=== PATIENT | male | born 1945 | race Caucasian/White ===

== ENCOUNTER → 2017-04-15 | Outpatient (CLI) | payer MEDICARE, OTHER ==
--- NOTE | 2017-04-16 16:20 | P.ARTDOP ---
Arterial Doppler LOWER EXTREMITY ARTERIAL DOPPLER: DATE OF SERVICE: 04/15/2017 Reason for study: Status post revascularization procedures. Doppler waveforms: Multiphasic bilaterally throughout. Pulse volume recording: Normal configuration. Pressure gradients: Mild gradient above the knee on the right. Moderate gradient above the knee on the left.. Ankle-brachial indices: 0.88 on the right and 0.65 on the left Toe pressures: [] on the right, [] on the left Impression: Mild right SFA disease. Moderate left fem-pop disease..
== END | disposition home or self-care (01) ==
LOC: RADUSWWP 08:37
PROVIDERS: ATTEND Internal Medicine
DX: I73.9 Peripheral vascular disease, unspecified (principal)
CPT/HCPCS: 93923

== ENCOUNTER 2018-06-10 09:25 | Day surgery (SDC) | payer MEDICARE, OTHER ==
[2018-06-08 16:01] VITALS: BMI 27.8
[~2018-06-10 09:25] MED LIST: LACTATED RINGERS 1,000 ML IV SCH; LIDOCAINE 1% 20 ML VIAL (10MG/ML) FOR IV START INTRADERMA PRN
[2018-06-10 10:23] VITALS: RESP 16; TEMP 97.6
[2018-06-10] MEDS ORDERED: LIDOCAINE 1% INJ 10MG/ML (20 ML MDV) ONE (11:25)
[2018-06-10] MEDS ORDERED: PROPOFOL 10 MG/ML 20 ML VIAL IV ONE (11:25)
[2018-06-10] MEDS ORDERED: GLYCOPYRROLATE 0.2 MG/ML 2 ML VIAL ONE (11:25)
--- NOTE | 2018-06-10 11:48 | P.PCN ---
Date of Procedure: 06/10/18 Procedure(s) Performed: Brief history: Patient is a pleasant 73-year-old white male, scheduled for an elective upper endoscopy as well as colonoscopy as a part of evaluation of GERD/Macedo's esophagus and screening for colorectal neoplasia Procedure performed: Esophagogastroduodenoscopy with biopsy Colonoscopy with snare polypectomy Preoperative diagnosis: Macedo's esophagus Screening for colon cancer Anesthesia: MAC Procedure: After informed consent was obtained from the patient was brought into the endoscopy unit and IV sedation was administered by anesthesia under continuous monitoring. Initially upper endoscopy was done. The Olympus GF 160 video endoscope was inserted inserted into the mouth and esophagus intubated without any difficulty and was gradually advanced into the stomach and duodenum and carefully examined. The bulb and second part of the duodenum appeared normal. The scope was then withdrawn into the stomach adequately insufflated with air and upon careful examination the antrum had a few patchy areas of erythema in the prepyloric area and biopsies from this area. The body, cardia and fundus appeared normal. The scope was then withdrawn into the esophagus. The GE junction was located at 39 cm to the incisors. It appeared regular with no erythema erosions or ulcthere was a short segment of Macedo's esophagus extending 2 mm proximal to the GE junction and this was biopsied.Rest of the esophagus appeared normal. Patient tolerated the procedure well. At this time the patient continued to remain sedation. Initial digital rectal examination was normal. Olympus CF 160 video colonoscope was then inserted into the rectum and gradually advanced to the cecum without any difficulty. Careful examination was performed as the scope was gradually being withdrawn. The prep was fair. The cecum, ascending colon, appeared normal. In the hepatic flexure there was a 1 cm sessile polyp removed by snare polypectomy. Rest of the transverse colon, descending colon, sigmoid colon and rectum appeared normal. Retroflexion was performed in the rectum and small internal hemorrhoids were noted. Patient tolerated the procedure well. Impression: 1. Upper endoscopy revealed short segment Macedo's esophagus and mild antral gastritis 2. Colonoscopy revealed 1 cm sessile hepatic flexure polyp status post polypectomy and small internal hemorrhoids. Rolo colonoscopy revealed mmendations: Findings of this examination were discussed with the patient as well as his family. He was advised to follow with the biopsy results. Based the biopsy results he can have a repeat upper endoscopy in 2-3 years from now colonoscopy in 3-5 years.
[2018-06-10 12:20] VITALS: BP 182/69; PULSE 63
== END 2018-06-10 12:46 | disposition home or self-care (01) ==
LOC: ORWHC2ENDO 09:25
PROVIDERS: ATTEND Internal Medicine Gastroenterology
DX: Z12.11 Encounter for screening for malignant neoplasm of colon (principal); K29.50 Unspecified chronic gastritis without bleeding; K22.70 Barrett's esophagus without dysplasia; K21.9 Gastro-esophageal reflux disease without esophagitis; D12.3 Benign neoplasm of transverse colon; K64.8 Other hemorrhoids; J44.9 Chronic obstructive pulmonary disease, unspecified; Z86.711 Personal history of pulmonary embolism; I25.10 Atherosclerotic heart disease of native coronary artery without angina pectoris; M19.90 Unspecified osteoarthritis, unspecified site; Z79.02 Long term (current) use of antithrombotics/antiplatelets; Z79.82 Long term (current) use of aspirin; Z79.899 Other long term (current) drug therapy; Z88.6 Allergy status to analgesic agent; Z88.8 Allergy status to other drugs, medicaments and biological substances
CPT/HCPCS: 88305; 45385; 43239; J2001; J2704

== ENCOUNTER → 2020-07-24 | Outpatient (CLI) | payer MEDICARE, OTHER ==
--- NOTE | 2020-07-24 08:06 | CT ---
EXAMINATION TYPE: CT iac wo con DATE OF EXAM: 07/24/2020 COMPARISON: none HISTORY: vertigo CT DLP: 300mGycm Automated exposure control for dose reduction was used. FINDINGS: The external auditory canals are patent bilaterally. Mastoid air cells show no evidence of abnormal opacification bilaterally. The middle ear ossicles are symmetric and unremarkable. There is no evidence of suspicious surrounding soft tissue density to suggest cholesteatoma. The scutum is preserved bilaterally. The cochlea and the semicircular canals are symmetric and unremarkable. Ves tibular aqueduct and internal carotid canal appear unremarkable. Temporomandibular joints are mainta ined bilaterally. There is mild mucosal thickening of the maxillary sinuses right greater than left. IMPRESSION: No significant abnormality seen to account for patient's symptoms.
== END | disposition home or self-care (01) ==
LOC: RADCTMAIN 07:09
PROVIDERS: ATTEND Otolaryngology
DX: H93.3X9 Disorders of unspecified acoustic nerve (principal); R42 Dizziness and giddiness
CPT/HCPCS: 70480

== ENCOUNTER 2021-06-13 08:57 | Day surgery (SDC) | payer MEDICARE, OTHER ==
[2021-06-08 09:25] VITALS: BMI 25.3
[2021-06-13] MEDS: LACTATED RINGERS 1,000 ML IV SCH ×2 (09:44→10:17)
[2021-06-13 09:47] VITALS: TEMP 98.3
[2021-06-13] MEDS ORDERED: LIDOCAINE 1% INJ 10MG/ML (20 ML MDV) ONE (10:18)
[2021-06-13] MEDS ORDERED: PROPOFOL 10 MG/ML 20 ML VIAL IV ONE (10:18)
--- NOTE | 2021-06-13 10:40 | P.PCN ---
Date of Procedure: 06/13/21 Procedure(s) Performed: Brief history: Patient is a pleasant 76-year-old white male scheduled for an elective upper endoscopy as well as colonoscopy as a part of evaluation of GERD/Macedo's esophagus and prior history of colon polyps Procedure performed: Esophagogastroduodenoscopy with biopsy Colonoscopy with biopsy Preoperative diagnosis: GERD/Macedo's esophagus History of colon polyps Anesthesia: MAC Procedure: After informed consent was obtained from the patient was brought into the endo scopy unit and IV sedation was administered by anesthesia under continuous monitoring. Initially upper endoscopy was done. The Olympus GF 160 video endoscope was inserted inserted into the mouth and esophagus intubated without any difficulty and was gradually advanced into the stomach and duodenum and carefully examined. The bulb and second part of the duodenum appeared normal. The scope was then withdrawn into the stomach adequately insufflated with air and upon careful examination the antrum and body, cardia and fundus appeared normal. The scope was then withdrawn into the esophagus. The GE junction was located at 40 cm to the incisors. It appeared irregular with short island of Macedo's-appearing mucosa which was biopsied. There were no erythema erosions or ulcerations. Rest of the esophagus appeared normal. Patient tolerated the procedure well. At this time the patient continued to remain sedation. Initial digital rectal examination was normal. Olympus CF 160 video colonoscope was then inserted into the rectum and gradually advanced to the cecum without any difficulty. Careful examination was performed as the scope was gradually being withdrawn. The prep was excellent. The cecum, ascending colon, transverse colon, descending colon, normal. There were 3 mm polyp in the sigmoid colon with cold biopsy. sigmoid colon and rectum appeared normal. Retroflexion was performed in the rectum and grade 2 internal hemorrhoids were noted. Patient tolerated the procedure well. Impression: 1. Upper endoscopy revealed a 2 mm island of Macedo's appearing mucosa just proximal to the GE junction status post biopsy 2. Colonoscopy revealed 3 mm; polyp, scattered sigmoid diverticulosis and grade 2 internal hemorrhoids Recommendations: Findings of this examination were discussed with the patient as well as his family. He was advised to follow with the biopsy results. If the biopsy confirms the presence of Macedo's esophagus he can have a repeat upper end oscopy in 3 years and or colonoscopy in 5 years.
[2021-06-13 10:46] VITALS: RESP 16
[2021-06-13 11:31] VITALS: BP 144/68; PULSE 54
== END 2021-06-13 11:59 | disposition home or self-care (01) ==
LOC: ORWHC2ENDO 08:57
PROVIDERS: ATTEND Internal Medicine Gastroenterology
DX: Z12.11 Encounter for screening for malignant neoplasm of colon (principal); K21.9 Gastro-esophageal reflux disease without esophagitis; K22.70 Barrett's esophagus without dysplasia; K64.8 Other hemorrhoids; K57.90 Diverticulosis of intestine, part unspecified, without perforation or abscess without bleeding; I10 Essential (primary) hypertension; E78.5 Hyperlipidemia, unspecified; I25.10 Atherosclerotic heart disease of native coronary artery without angina pectoris; Z95.1 Presence of aortocoronary bypass graft; Z95.5 Presence of coronary angioplasty implant and graft; Z86.711 Personal history of pulmonary embolism; Z86.718 Personal history of other venous thrombosis and embolism; Z79.899 Other long term (current) drug therapy; Z79.82 Long term (current) use of aspirin; E07.9 Disorder of thyroid, unspecified; Z79.02 Long term (current) use of antithrombotics/antiplatelets; K63.5 Polyp of colon
CPT/HCPCS: 88305; 45380; 43239; J2001; J2704

== ENCOUNTER → 2021-11-01 | Outpatient (CLI) | payer MEDICARE, OTHER ==
--- NOTE | 2021-11-01 17:01 | CONS ---
CONSULTATION DATE OF SERVICE: 11/01/2021 This 76-year-old gentleman has been evaluated in [facility] for episodes of multiple awakenings from sleep and sometimes tiredness and sleepiness during the day. HISTORY OF PRESENT ILLNESS SLEEP-WAKE EVALUATION: SLEEP SCHEDULE: Patient's usual sleep schedule from 11 p.m. to 6 or 7 a.m. FALLING ASLEEP: Usually no problems with falling asleep. No TV in bedroom. DURING SLEEP: He usually sleeps on the side position. Previously, he snores. He wakes up from sleep up to 3 times with nocturia. DURING THE DAY/SLEEP WAKE EVALUATION: During the day, he may have feeling fatigue and sleepiness. [place] Sleepiness Scale he is 4. Usually he may take one nap at afternoon time. He drinks up to 7 glasses of caffeinated beverages during the day. No history of hypnagogic hallucinations, sleep paralysis or cataplexy. PAST MEDICAL HISTORY: Positive for coronary artery disease, hyperlipidemia, acid reflux, hypothyroidism. Gout, lung problems, including emphysema, tuberculosis. MEDICATIONS: Synthroid 50 mcg once a day, hydralazine 25 mg twice a day, Coreg 3.125 mg twice a day. Nexium 40 mg once a day. Trental 400 mg twice a day. Plavix 75 mg once a day. Norvasc 10 mg once a day. Cardura 8 mg once a day. Crestor 20 mg once a day. Uloric 40 mg once a day. Meclizine 12.5 mg as needed. Aspirin 81 mg once a day. Melyssa 180 mg once a day. Vitamin supplements. SOCIAL HISTORY: Positive for smoking for 36 years, 1-1/2 pack a day, quit in 1993. Alcohol consumption occasional. FAMILY HISTORY: Positive for heart problems, lung problems. REVIEW OF SYSTEMS: Multiple awakenings from sleep with nocturia. PHYSICAL EXAMINATION: GENERAL: gentleman without distress. BP 188/77, HR 60, RR 14, height 5 feet 8 inches, weight 163.0, body mass index 24.7, temperature 96.8, oxygen saturation at room air 97%. OROPHARYNX: Low position of soft palate, Mallampati 3, wide pillars. Neck is wide 17- 1/2 inches in circumference. Neck: Supple, no JVD. Thyroid is not palpable. LUNGS: Clear to percussion and to auscultation. Good air exchange. No wheezing or rhonchi. HEART: S1, S2 regular. No murmurs, gallops, or rubs. ABDOMEN: Soft and nontender. Bowel sounds are present. No organomegaly appreciated. EXTREMITIES: No clubbing or cyanosis. ACOUSTICAL CARPENTER: Awake, alert, and oriented X3. Cranial nerves 2 to 7 intact. There is no fasciculation or atrophy. noted. No focal deficits observed. IMPRESSION: 1. Multiple awakenings from sleep with nocturia, low position of soft palate, Mallampati 3, wide neck, 17-1/2 inches in circumference, possible obstructive sleep apnea-hypopnea syndrome. 2. Hypertension. 3. History of coronary artery disease, status post coronary artery bypass grafting and multiple stent insertions. 4. Hyperlipidemia. 5. Arthritis. 6. History of gout. 7. History of smoking for more than 50 pack years. 8. History of emphysema. 9. Acid reflux. 10.Hypothyroidism. 11.Status post hernia repair. 12.Status post surgery for carpal tunnel syndrome. 13.Status post tonsillectomy. PLAN: 1. Polysomnography for evaluation of patient's breathing during sleep. 2. CPAP/BiPAP titration if sleep study confirms obstructive sleep apnea-hypopnea syndrome. 3. Preferable position during sleep on the side. 4. No driving if patient feels any sleepiness. 5. I will see patient for follow up visit to explain results of testing and following plan. Thank you very much for referring this patient for consultation. Sincerely, Kash Nicole MD, PhD, FAASM Diplomat of [place] [employer] Sleep Medicine [employer] of [place] [employer] Slip Cover Estimator of [facility] [place] MMODL / IJN: [id number] /
== END ==
LOC: SLEEP 14:41
PROVIDERS: ATTEND Internal Medicine
DX: G47.8 Other sleep disorders (principal); R35.1 Nocturia; I10 Essential (primary) hypertension; I25.10 Atherosclerotic heart disease of native coronary artery without angina pectoris; E78.5 Hyperlipidemia, unspecified; M19.90 Unspecified osteoarthritis, unspecified site; K21.9 Gastro-esophageal reflux disease without esophagitis; E03.9 Hypothyroidism, unspecified; Z87.891 Personal history of nicotine dependence; Z90.49 Acquired absence of other specified parts of digestive tract; Z98.890 Other specified postprocedural states; Z87.39 Personal history of other diseases of the musculoskeletal system and connective tissue; Z95.1 Presence of aortocoronary bypass graft; Z87.09 Personal history of other diseases of the respiratory system; Z79.890 Hormone replacement therapy; Z79.02 Long term (current) use of antithrombotics/antiplatelets; Z79.82 Long term (current) use of aspirin
CPT/HCPCS: 99211

== ENCOUNTER → 2022-05-01 | Outpatient (CLI) | payer MEDICARE, OTHER ==
--- NOTE | 2022-05-01 11:05 | CT ---
EXAMINATION TYPE: CT ChestAbdPelvis w con DATE OF EXAM: 05/01/2022 COMPARISON: None HISTORY: Unexplained weight loss CT DLP: 587.3 mGycm CONTRAST: CT scan of the chest, abdomen and pelvis is performed with Oral Contrast and with IV Contrast, patien t injected with 70 ML mL of Isovue 300. CT Chest: LUNGS: The lungs are clear and free of infiltrate or atelectasis. No pulmonary nodule or mass is det ected. No pleural effusion or CT evidence of interstitial lung disease. MEDIASTINUM: Thoracic aorta is of normal caliber. The heart is not enlarged. No evidence for media stinal mass or adenopathy. HILAR STRUCTURES: No evidence for mass. No hilar adenopathy is appreciated. OTHER: No significant abnormality. CONTRAST CT ABDOMEN AND PELVIS FINDINGS: LIVER/GB: Small calcified gallstones noted. No space occupying hepatic lesion. Biliary tree is of nor mal caliber. PANCREAS: No inflammation. No distinct mass. SPLEEN: No splenic enlargement. No lesion seen. ADRENALS: No nodule. No thickening. KIDNEYS/BLADDER: No hydronephrosis. No nephrolithiasis. Renal cystic changes noted bilaterally. No solid lesions evident. BOWEL: Normal appendix. Normal bowel caliber. No inflammation. Wall thickening the distal stomach/d uodenum. Could reflect inflammatory process such as a gastritis/duodenitis however underlying mass is not excluded. Consider direct visualization. GENITAL ORGANS: No gross abnormality. LYMPH NODES: No greater than 1cm abdominal or pelvic lymph nodes are appreciated. AORTA: Extensive atheromatous change of the abdominal aorta stenosis estimated at greater than 70%. T he renal artery stents in place. The kidneys appear to perfuse symmetrically. There is some moderate calcified and soft plaque at the origin of the SMA as well as calcified plaque distally. OSSEOUS STRUCTURES: No significant abnormality is seen. OTHER: No significant additional abnormality is seen. IMPRESSION: 1. Wall thickening the distal stomach/duodenum. Could reflect inflammatory process such as a gastriti s/duodenitis however underlying mass is not excluded. Consider direct visualization. 2. Extensive atheromatous change of the abdominal aorta with the greater than 70% stenosis suggested. In addition there is a moderate calcified and soft plaque at the origin of the SMA as well as distal branch. Intermittent ischemia not excluded.
== END | disposition home or self-care (01) ==
LOC: RADCTMAIN 08:39
PROVIDERS: ATTEND Internal Medicine
DX: K63.89 Other specified diseases of intestine (principal); I70.0 Atherosclerosis of aorta
CPT/HCPCS: 82565; 84520; 71260; 74177; 36415; Q9967

== ENCOUNTER → 2022-07-09 | Outpatient (CLI) | payer MEDICARE, OTHER ==
[2022-07-09 18:36] LABS: Basophils # (A) 0.11 X 10*3/uL (0.00-0.10); Basophils % (A) 1.7 %; Eosinophils # (A) 0.26 X 10*3/uL (0.04-0.35); HCT 44.4 % (39.6-50.0); HGB 14.9 g/dL (13.0-17.0); Immature Grans, Automated 0.2 %; Lymphocytes % (A) 24.5 %; MCHC 33.6 g/dL (32.0-37.0); MCV 95.5 fL (80.0-97.0); Mean Platelet Volume 9.9 fL (9.5-12.2); Monocytes # (A) 0.59 X 10*3/uL (0.20-1.00); NRBC Per 100 WBC 0 /100 WBCS (0.0-0.0); Neutrophils # (A) 3.97 X 10*3/uL (1.80-7.70); Neutrophils % (A) 60.6 %; Platelet Count 189 X 10*3/uL (140-440); RBC 4.65 X 10*6/uL (4.40-5.60); RDW 12.9 % (11.5-14.5); WBC 6.54 X 10*3/uL (4.50-10.00)
[2022-07-09 18:49] LABS: Anion Gap 10.3 mmol/L (10.00-18.00); Carbon Dioxide 26.7 mmol/L (20.0-27.5); Potassium 4.1 mmol/L (3.5-5.5)
== END | disposition home or self-care (01) ==
LOC: LABPAT 12:41
PROVIDERS: ATTEND Orthopaedic Surgery Hand Surgery
DX: Z01.818 Encounter for other preprocedural examination (principal); R00.1 Bradycardia, unspecified
CPT/HCPCS: 80051; 85025; 93005

== ENCOUNTER 2022-07-24 10:46 | Day surgery (SDC) | payer MEDICARE, OTHER ==
--- NOTE | 2022-07-23 10:57 | P.HPOR ---
History of Present Illness H&P Date: 07/23/22 Chief Complaint: Left index finger trigger finger, right middle finger trigger finger Subjective: This is a 77 year old male that presents today for initial evaluation regarding a several month history of worsening left index finger pain, locking, and l imited ROM. He also has similar early symptoms of his right middle finger but they are not as severe. He has a history of prior trigger fingers in other digits that were initially treated with injections but ultimately hand trigger finger release on them, he has not had surgery on the left index or right middle finger. He has tried tylenol and aspirin for his symptoms. He's noticed daily locking and pain of the left side, denies any injury. Physical Examination: LUE: AIN/PIN/Radial/Ulnar/Median motor intact. Radial/Ulnar/Median SILT. 2+/4 Radial/Ulnar pulses palpated. 5/5 APB, 5/5 FDI. Negative Finkelsteins, negative CMC grind, negative Durkan's compression. TTP at LIF A1 brigid with locking and catching. RUE: AIN/PIN/Radial/Ulnar/Median motor intact. Radial/Ulnar/Median SILT. 2+/4 Radial/Ulnar pulses palpated. 5/5 APB, 5/5 FDI. Negative Finkelsteins, negative CMC grind, negative Durkan's compression. TTP at RMF A1 brigid with minimal locking and catching. Imaging: X-Rays of the b/l hands demonstrate no fracture/dislocation Impression: 1.) Left index finger trigger finger 2.) Right middle finger trigger finger Plan: Diagnosis and treatment options were discussed with the patient. He would like to proceed with left index finger A1 brigid release and right middle finger trigger finger steroid injection. Risks and benefits of surgery including bleeding, infection, damage to surrounding tissue, need for further surgery, residual numbness were discussed and the patient wished to go forward with surgery. -Sami Lemos DO Orthopedic Hand/Upper Extremity Surgeon Past Medical History Past Medical History: Coronary Artery Disease (CAD), Chest Pain / Angina, COPD, GERD/Reflux, Hyperlipidemia, Hypertension, Osteoarthritis (OA), Pulmonary Embolus (PE), Skin Disorder Additional Past Medical History / Comment(s): heart murmer, gout,,HEART BLOCK ( pt doesn't know type) in past, EMPHYSEMA, BARRETTS ESOPHAGUS History of Any Multi-Drug Resistant Organisms: None Reported Past Surgical History: Coronary Bypass/CABG, Heart Catheterization With Stent, Hernia Repair, Orthopedic Surgery, Tonsillectomy Additional Past Surgical History / Comment(s): 2 stents to lt iliac,1 stent to rt iliac, rt inguinal hernia repair, egd, triple vessel cabg; stent left renal artery, left shoulder surgery,shikha wrist surgery, cataracts Past Anesthesia/Blood Transfusion Reactions: No Reported Reaction Date of Last Stent Placement:: 2003 Smoking Status: Former smoker - Past Family History Mother Family Medical History: Congestive Heart Failure (CHF) Father Family Medical History: Myocardial Infarction (OR) Additional Family Medical History / Comment(s): cabg, at age 67 Medications and Allergies Home Medications Medication Instructions Recorded Confirmed Type Pentoxifylline [TRENtal] 400 mg PO BID 08/08/15 07/19/22 History Rosuvastatin Calcium [Crestor] 20 mg PO HS 08/08/15 07/19/22 History Febuxostat [Uloric] 40 mg PO HS 06/08/18 07/19/22 History Acetaminophen [Tylenol Arthritis] 1,300 mg PO BID 06/08/21 07/19/22 History Aspirin [Adult Low Dose Aspirin EC] 81 mg PO HS 06/08/21 07/19/22 History Cholecalciferol [Vitamin D3 (25 50 mcg PO DAILY 06/08/21 07/19/22 History Mcg = 1000 Iu)] Clindamycin Phosphate [Clindagel 1 applic TOPICAL DIRECTED 06/08/21 07/19/22 History 1%] Clopidogrel [Plavix] 75 mg PO HS 06/08/21 07/19/22 History Doxazosin Mesylate [Cardura] 8 mg PO HS 06/08/21 07/19/22 History Esomeprazole Magnesium [NexIUM] 40 mg PO DAILY 06/08/21 07/19/22 History Fexofenadine HCl [Melyssa Allergy] 180 mg PO DAILY 06/08/21 07/19/22 History Levothyroxine Sodium [Synthroid] 50 mcg PO DAILY 06/08/21 07/19/22 History Meclizine [Antivert] 12.5 mg PO DIRECTED PRN 06/08/21 07/19/22 History [place]-3 Fatty Acids/Fish Oil [Fish 1,300 mg PO DAILY 06/08/21 07/19/22 History Oil 1,000 mg Softgel] Ubidecarenone [Co Q-10] 200 mg PO DAILY 06/08/21 07/19/22 History amLODIPine [Norvasc] 10 mg PO HS 06/08/21 07/19/22 History carvediloL [Coreg] 3.125 mg PO BID 06/08/21 07/19/22 History hydrALAZINE HCL [Apresoline] 25 mg PO BID 06/08/21 07/19/22 History cycloSPORINE 0.05% OPHTH SOLN 1 drop BID 07/19/22 07/19/22 History [Restasis] Allergies Allergy/AdvReac Type Severity Reaction Status Date / Time ibuprofen [From Nuprin] Allergy throat Verified 07/19/22 10:56 swelling simvastatin [From Zocor] Allergy muscle pain Verified 07/19/22 10:56 allopurinol AdvReac Rash/Hives Verified 07/19/22 10:56 Physical Examination Osteopathic Statement: *. No significant issues noted on an osteopathic structural exam other than those noted in the History and Physical/Consult.
[~2022-07-24 10:46] MED LIST changes: +DEXAMETHASONE SOD PHOSPHATE 4 MG/ML 1 ML VIAL IV ONE; +HYDROmorphone 0.5 MG/0.5 ML SYRINGE IVP PRN; +LIDOCAINE 1% (10MG/ML) FOR IV START INTRADERMA PRN; -LIDOCAINE 1% 20 ML VIAL (10MG/ML) FOR IV START INTRADERMA PRN; +MIDAZOLAM 2 MG/2 ML VIAL IV PRN; +ONDANSETRON 4 MG/2 ML VIAL IVP ONE; +Pre Op ABX Message 1 EACH MISC MISCELLANE ONE
[2022-07-24 11:42] VITALS: RESP 16; TEMP 98.4
[2022-07-24] MEDS ORDERED: fentaNYL (PF) 50 MCG/ML 2 ML AMP ONE (12:51)
[2022-07-24] MEDS ORDERED: MIDAZOLAM 2 MG/2 ML VIAL ONE (12:51)
[2022-07-24] MEDS ORDERED: PROPOFOL 10 MG/ML 20 ML VIAL IV ONE (12:51)
[2022-07-24] MEDS ORDERED: LIDOCAINE 1% INJ 10MG/ML (20 ML MDV) SQ ONE (13:02)
[2022-07-24] MEDS ORDERED: BUPIVACAINE (PF) 0.5% 30 ML VIAL SQ ONE (13:02)
[2022-07-24] MEDS ORDERED: BUPIVACAINE (PF) 0.5% 30 ML VIAL MISCELLANE ONE (13:05)
[2022-07-24] MEDS ORDERED: methylPREDNISolone ACETATE 40 MG/ML 1 ML VIAL MISCELLANE ONE (13:05)
[2022-07-24 13:45] VITALS: BP 157/66; PULSE 64
--- NOTE | 2022-07-25 07:28 | P.OP ---
Date of Procedure: 07/24/22 Preoperative Diagnosis: 1.) Left index finger trigger finger 2.) Right middle finger trigger finger Postoperative Diagnosis: 1.) Left index finger trigger finger 2.) Right middle finger trigger finger Procedure(s) Performed: 1.) Left index finger A1 brigid release 2.) Right middle finger trigger finger steroid injection Anesthesia: MAC Surgeon: Sami Lemos Estimated Blood Loss (ml): 0 Pathology: none sent Condition: stable Disposition: PACU Description of Procedure: This is a 77 year old male who presents today for a left index finger trigger finger A1 brigid release and a right middle finger trigger finger steroid injection after having failed conservative treatment. Risks and benefits of surgery were discussed with the patient including bleeding, damage to surrounding tissue, infection, need for further surgery as well as risks of anesthesia including pulmonary embolism and even and the patient wished to proceed with surgical intervention. The patient was seen in the pre-operative area by myself. Consent and H&P were completed and updated. The correct extr emity was marked in the pre-operative area by myself and all other questions were answered. Operative Narrative: The patient was brought to the operating room by the department of anesthesia. They remained on the portable stretcher and a rolling hand table was brought to the side of the operative extremity. Pre-operative time out was performed indicating the correct patient, procedure and laterality. All in the room agreed. Pre-operative antibiotics were given prior to skin incision. The patient was then drifted off to sleep by the department of anesthesia. MAC ane sthesia was utilized and a 50:50 mixture of 1% Lidocaine and 0.5% bupivacaine was injected into the subcutaneous tissues of the palmar skin, 4ccs total. A nonsterile tourniquet was then applied to the operative extremity and the left upper extremity was then prepped and draped in normal sterile fashion. The operative extremity was the exsanguinated with an esmarch bandage and the tourniquet was inflated to 250mmHg. The right hand was prepped with a alcohol swab. A 1cc mixture of 0.5cc of 40mg depomedrol and .5cc of bupivicaine was injected into the region of the A1 brigid of the right middle finger. Bandaid was placed. Oblique incision was made at the base of the left index finger. Blunt dissection was taken down to the level of the A1 brigid. Ragnell retractors were placed both radially and ulnarly to protect neurovascular bundles. Littler tenotomy scissors were then used to release the A1 brigid from proximal to distal under direct visualization. Proximal fascial attachments were released. The tendon was then taken through range of motion and no locking or catching was appreciated. The wound was then closed with interrupted 4-0 nylon sutures in a horizontal mattress fashion. Sterile dressing consisting of adaptic, 4x4s, webril, and an zarina wrap was applied. Tourniquet was let down and the hand was immediately well perfused. The patient was then woken by the department of anesthesia and transferred to PACU in stable condition. Sami Lemos D.O. Orthopedic Hand/Upper Extremity Surgeon
== END 2022-07-24 14:00 | disposition home or self-care (01) ==
LOC: OR 10:46
PROVIDERS: ATTEND Orthopaedic Surgery Hand Surgery
DX: M65.322 Trigger finger, left index finger (principal); M65.331 Trigger finger, right middle finger; I25.10 Atherosclerotic heart disease of native coronary artery without angina pectoris; J44.9 Chronic obstructive pulmonary disease, unspecified; E78.5 Hyperlipidemia, unspecified; I10 Essential (primary) hypertension; M19.90 Unspecified osteoarthritis, unspecified site; I26.99 Other pulmonary embolism without acute cor pulmonale; Z87.19 Personal history of other diseases of the digestive system; Z95.1 Presence of aortocoronary bypass graft; Z90.89 Acquired absence of other organs; Z98.49 Cataract extraction status, unspecified eye; Z87.891 Personal history of nicotine dependence; Z82.49 Family history of ischemic heart disease and other diseases of the circulatory system; Z79.02 Long term (current) use of antithrombotics/antiplatelets; Z79.82 Long term (current) use of aspirin; Z79.2 Long term (current) use of antibiotics; Z79.83 Long term (current) use of bisphosphonates; Z79.899 Other long term (current) drug therapy; Z88.6 Allergy status to analgesic agent; Z88.8 Allergy status to other drugs, medicaments and biological substances
CPT/HCPCS: 26055; 20550; J2250; J1030; J1100; J2405; J2001; J3010; J2704

== ENCOUNTER → 2023-01-15 | Outpatient (CLI) | payer MEDICARE, OTHER ==
--- NOTE | 2023-01-15 15:14 | US ---
EXAMINATION TYPE: US thyroid st tissue head/neck DATE OF EXAM: 01/15/2023 COMPARISON: NONE CLINICAL HISTORY: E04.1 Nontoxic single thyroid nodule. GLAND SIZE: Right Lobe: 3.7 x 1.4 x 1.4 cm Overall Parenchyma: homogenous Left Lobe: 3.4 x 1.3 x 1.2 cm Overall Parenchyma: homogeneous Isthmus Thickness: 0.2 cm NODULES RIGHT: # of nodules measured on right: 0 LEFT: # of nodules measured on left: 0 ISTHMUS: # of nodules measured in the isthmus: 0 Bilateral neck scanned, no evidence of lymphadenopathy. IMPRESSION: No suspicious thyroid nodules.
== END | disposition home or self-care (01) ==
LOC: RADUSWWP 10:44
PROVIDERS: ATTEND Internal Medicine Endocrinology, Diabetes & Metabolism
DX: E04.1 Nontoxic single thyroid nodule (principal)
CPT/HCPCS: 76536

== ENCOUNTER → 2023-08-20 | Outpatient (CLI) | payer MEDICARE, OTHER ==
[2023-08-20 18:57] LABS: ALT 20 U/L (10-49); AST 18 U/L (14-35); Albumin 4.4 d/dL (3.8-4.9); Alkaline Phosphatase 91 U/L (41-126); BUN/Creat Ratio 25.87 Ratio (12.00-20.00); Blood Urea Nitrogen 38.8 mg/dL (9.0-27.0); Carbon Dioxide 22.5 mmol/L (21.6-31.8); Chloride 110 mmol/L (96-109); Globulin 2.1 d/dL (1.6-3.3); Glucose 96 mg/dL (70-110); Potassium 5.4 mmol/L (3.5-5.5); Sodium 144 mmol/L (135-145); T4, Free (Free Thyroxine) 1.22 ng/dL (0.80-1.80); Total Bilirubin 0.3 mg/dL (0.3-1.2); Total Protein 6.5 d/dL (6.2-8.2)
[2023-08-20 22:04] LABS: HCT 36.8 % (39.6-50.0); HGB 11.9 d/dL (13.0-17.0); MCH 31.9 pg (27.0-32.0); MCHC 32.3 d/dL (32.0-37.0); MCV 98.7 FL (80.0-97.0); Mean Platelet Volume 10.6 FL (9.5-12.2); NRBC Per 100 WBC 0 X 10*3/uL (0.00-0.01); Platelet Count 207 X 10*3/uL (140-440); RBC 3.73 X 10*6/uL (4.40-5.60); RDW 13.9 % (11.5-14.5); WBC 7.46 X 10*3/uL (4.50-10.00)
== END | disposition home or self-care (01) ==
LOC: LABWHC1 12:16
PROVIDERS: ATTEND Internal Medicine Endocrinology, Diabetes & Metabolism
DX: E04.1 Nontoxic single thyroid nodule (principal); R42 Dizziness and giddiness; R41.3 Other amnesia
CPT/HCPCS: 36415; 80053; 82306; 82607; 84439; 84443; 84481; 85027

== ENCOUNTER → 2024-02-19 | Outpatient (CLI) | payer MEDICARE, OTHER ==
[2024-02-19 19:19] LABS: T4, Free (Free Thyroxine) 1.24 ng/dL (0.80-1.80)
== END | disposition home or self-care (01) ==
LOC: LABWHC1 14:47
PROVIDERS: ATTEND Internal Medicine Endocrinology, Diabetes & Metabolism
DX: E04.1 Nontoxic single thyroid nodule (principal)
CPT/HCPCS: 36415; 84439; 84443

== ENCOUNTER → 2024-03-25 | Outpatient (CLI) | payer MEDICARE, OTHER ==
--- NOTE | 2024-03-27 14:51 | PE ---
EXAMINATION TYPE: PET CT fusion skull to thigh DATE OF EXAM: 03/25/2024 COMPARISON: CT chest abdomen pelvis 05/01/2022 Prior PET/CT: No prior at this location HISTORY: Lung nodule TECHNIQUE: Following the intravenous administration of 11.02 mCi of F-18 FDG, whole body images are performed from the skull base to the midthigh. Images are reviewed on the computer in the coronal, a xial, and sagittal planes. Reconstructed rotating images are created on independent workstation and reviewed on the computer. A localization and attenuation correction CT is performed in conjunction with the PET scan. DLP: 244.3 mGycm SCAN: Initial Blood glucose: 80 mg/dL Average Mediastinum SUV: 1.54 Average Liver SUV: 1.86 FINDINGS: NECK: No abnormal uptake THORAX: Intense uptake is in the right supraclavicular region, image 67, SUV 4.41. Additional uptake appears to be in the superior mediastinum, image 71, SUV 4.01 There are multiple areas of increased uptake within the superior mediastinum, example image 73, SUV 4 .96. Paratracheal uptake is present, image 78, SUV 3.84. Some superior mediastinal uptake is present more anteriorly, series 78, SUV 2.36. Intense uptake along the anterior superior mediastinum image 83 , SUV 5.54 pretracheal uptake is present, image 86, SUV 4.43. There is some pretracheal uptake, image 99, SUV 2.98. Subcarinal lymphadenopathy has intense uptake, image 108, SUV 4.69. Right infrahilar mass has marked uptake, example image 117, SUV 5.49. This has some central hypointen sity. ABDOMEN: No abnormal uptake PELVIS: No abnormal uptake OSSEOUS STRUCTURES: Minimal uptake along a right costovertebral junction is present, image 58, SUV 2. 04. There is a focus of radiotracer within the posterior left iliac wing, image 205, SUV 4.[address]: May be some free fluid within the pelvis. Postsurgical changes are within the right lower quadrant cholelithiasis is present. There is a cyst on the left kidney. Lung mass right infrahi lar region is readily apparent. COMPARISON: Right infrahilar mass is new from 05/01/2022 IMPRESSION: 1. Marked uptake within the right infrahilar mass compatible with neoplasm. 2. Additional uptake within mediastinal superior mediastinal, right supraclavicular region suspicious for metastatic disease. 3. Additional uptake within the left iliac wing posterior and medial and possibly within the right co stovertebral junction. These could be osseous metastasis. 4. Cholelithiasis. 5. Likely within the pelvis
== END | disposition home or self-care (01) ==
LOC: RADPETMAIN 06:38
PROVIDERS: ATTEND Radiology Radiation Oncology
DX: K80.20 Calculus of gallbladder without cholecystitis without obstruction (principal); R91.1 Solitary pulmonary nodule
CPT/HCPCS: 78815; A9552

== ENCOUNTER 2024-04-05 06:13 | Day surgery (SDC) | payer MEDICARE, OTHER ==
[2024-04-02 09:40] VITALS: BMI 21.1
[~2024-04-05 06:13] MED LIST changes: -DEXAMETHASONE SOD PHOSPHATE 4 MG/ML 1 ML VIAL IV ONE; -HYDROmorphone 0.5 MG/0.5 ML SYRINGE IVP PRN; -LACTATED RINGERS 1,000 ML IV SCH; -LIDOCAINE 1% (10MG/ML) FOR IV START INTRADERMA PRN; -MIDAZOLAM 2 MG/2 ML VIAL IV PRN; -ONDANSETRON 4 MG/2 ML VIAL IVP ONE; -Pre Op ABX Message 1 EACH MISC MISCELLANE ONE; +SODIUM CHLORIDE 0.9% 500 ML 500 ML IV SCH
[2024-04-05] MEDS ORDERED: LACTATED RINGERS 1,000 ML IV SCH (06:44)
[2024-04-05 06:56] VITALS: TEMP 98
[2024-04-05] MEDS: SODIUM CHLORIDE 0.9% 500 ML 500 ML IV ONE (07:05)
[2024-04-05] MEDS ORDERED: PROPOFOL 10 MG/ML 20 ML VIAL IV ONE (07:25)
--- NOTE | 2024-04-05 08:00 | CE ---
CARDIAC ELECTROPHYSIOLOGY REPORT PROCEDURE: Electrical cardioversion. INDICATION: Persistent atrial fibrillation. CLINICAL INFORMATION: Mr. Terrence Dueñas is a 78-year-old gentleman with history of CAD, prior bypass surgery and PCI, hypertension, hyperlipidemia, peripheral artery disease with bilateral iliac stenting, COPD, past history of smoking, aortic stenosis of a [id number] degree with recent onset atrial fibrillation and adequate anticoagulation for nearly 4 to 6 weeks. He was advised electrical cardioversion in view of persistent atrial fib in spite of amiodarone. The risks, benefits, options and rationale were explained. PROCEDURE NOTE: Under the influence of [id number] intravenous anesthetic agent with the attendance of the anesthesiologist, a single shock of 120 joules was delivered with anterior and posterior patches. The patient converted to sinus rhythm, remained hemodynamically stable and neurologically intact. This was a successful electrical cardioversion. He will be discharged after he is up and ambulatory, and I will see him in the office in 1 week. He will be on same medications including amiodarone, beta cecy, and Eliquis. MMODL / MARILUZN: [id number] /
[2024-04-05 08:11] VITALS: RESP 16
[2024-04-05 08:53] VITALS: BP 152/66; PULSE 74
== END 2024-04-05 09:24 | disposition home or self-care (01) ==
LOC: OR 06:13
PROVIDERS: ATTEND Internal Medicine Interventional Cardiology
DX: I48.11 Longstanding persistent atrial fibrillation (principal); I10 Essential (primary) hypertension; I25.10 Atherosclerotic heart disease of native coronary artery without angina pectoris; E78.5 Hyperlipidemia, unspecified; I73.9 Peripheral vascular disease, unspecified; J44.9 Chronic obstructive pulmonary disease, unspecified; Z87.891 Personal history of nicotine dependence; Z95.5 Presence of coronary angioplasty implant and graft; Z79.01 Long term (current) use of anticoagulants; Z79.899 Other long term (current) drug therapy
CPT/HCPCS: 92960; J2704

== ENCOUNTER 2024-05-10 16:00 | Emergency (ER) | payer MEDICARE, OTHER ==
[2024-05-10] MEDS: METOPROLOL TARTRATE 5 MG/5 ML VIAL IVP STA (17:14)
[2024-05-10] MEDS: DIPH,PERTUS(ACELL)TETVAC-LF 0.5 ML VIAL IM ONE (17:15)
[2024-05-10] MEDS: SODIUM CHLORIDE 0.9% 1,000 ML IV STA (17:16)
[2024-05-10 17:17] LABS: Anisocytosis Slight; Basophils % (A) 0 %; Eosinophils # (A) 0.1 k/uL (0-0.7); Eosinophils % (A) 1 %; HCT 34.7 % (39.0-53.0); HGB 10.7 gm/dL (13.0-17.5); Hypochromasia Marked; Lymphocytes # (A) 0.5 k/uL (1.0-4.8); Lymphocytes % (A) 6 %; MCH 28.2 pg (25.0-35.0); MCHC 30.7 g/dL (31.0-37.0); MCV 91.8 fL (80.0-100.0); Mean Platelet Volume 7.8; Monocytes # (A) 0.4 k/uL (0-1.0); Monocytes % (A) 4 %; Neutrophils # (A) 8.7 k/uL (1.3-7.7); Neutrophils % (A) 89 %; Platelet Count 404 k/uL (150-450); RBC 3.78 m/uL (4.30-5.90); RDW 16.3 % (11.5-15.5); WBC 9.7 k/uL (3.8-10.6)
[2024-05-10 17:27] LABS: INR 1.1 (<1.2); Partial Thromboplastin Time 24.2 sec (22.0-30.0); Prothrombin Time 11.6 sec (10.0-12.5)
[2024-05-10 17:31] LABS: ALT 39 U/L (4-49); AST 55 U/L (17-59); African American GFR (CKD) 45 (>60 ml/min/1.73 sqM); Albumin 3.2 g/dL (3.5-5.0); Alkaline Phosphatase 255 U/L (38-126); Anion Gap 4 mmol/L; Blood Urea Nitrogen 25 mg/dL (9-20); Calcium 9.5 mg/dL (8.4-10.2); Carbon Dioxide 30 mmol/L (22-30); Chloride 101 mmol/L (98-107); Glucose 157 mg/dL (74-99); Lipase 29 U/L (23-300); Magnesium 2.3 mg/dL (1.6-2.3); Non-African American GFR(CKD) 39 (>60 ml/min/1.73 sqM); Potassium 5.2 mmol/L (3.5-5.1); Sodium 135 mmol/L (137-145); Total Protein 5.8 g/dL (6.3-8.2)
--- NOTE | 2024-05-10 17:49 | XR ---
EXAMINATION TYPE: XR chest 2V DATE OF EXAM: 05/10/2024 5:44 PM CLINICAL INDICATION:Male, 79 years old with history of Chest Pain; [facility] COMPARISON: 03/25/2024 CT/PET TECHNIQUE: XR chest 2V Frontal view of the chest. FINDINGS: Lungs/Pleura: Right lower lobe mass measuring up to 6.0 cm seen on priors. There is no evidence of le ft pleural effusion, focal consolidation, or pneumothorax. Blunting of the right costophrenic angle. Pulmonary vascularity: Unremarkable. Heart/mediastinum: Cardiomediastinal silhouette is unremarkable. Musculoskeletal: No acute osseous pathology. Midline sternotomy wires are noted. IMPRESSION: 1. Right lower lobe masslike consolidation compatible with known malignancy. No obvious acute proces s superimposed on this. 2. Trace right pleural effusion suggested.
--- NOTE | 2024-05-10 17:51 | XR ---
EXAMINATION TYPE: XR knee limited RT DATE OF EXAM: 05/10/2024 5:44 PM CLINICAL INDICATION:Male, 79 years old with history of fall; [facility] COMPARISON: None. TECHNIQUE: XR knee limited RT; examined in Frontal, lateral and oblique projections. FINDINGS: Unicompartmental arthroplasty of the right knee. Appears intact. Atherosclerosis of the art erial vasculature. No evidence of any acute osseous pathology, soft tissue swelling, or joint effusi on is noted. Patellofemoral and lateral knee osteophyte formation involving the femoral condyles, tib ial plateau and patella. Mild joint space narrowing. IMPRESSION: 1. No acute osseous pathology. 2. Postsurgical changes with hardware intact. 3. Mild lateral and patellofemoral osteoarthritic changes.
--- NOTE | 2024-05-10 17:52 | XR ---
EXAMINATION TYPE: XR pelvis AP view DATE OF EXAM: 05/10/2024 5:44 PM CLINICAL INDICATION:Male, 79 years old with history of fall; [facility] COMPARISON: 03/25/2024 TECHNIQUE: XR pelvis AP view, examined in a single projection. FINDINGS: There is no evidence of fracture or dislocation. There is no soft tissue abnormality. No a bnormal calcifications are present. The spine appears intact. The hips appear intact. Osteophyte form ation of the superior acetabulum bilaterally with mild joint space narrowing. Surgical clips project over the right pelvis. There is bilateral common iliac stents. IMPRESSION: No acute osseous pathology. Mild degeneration changes of the hip.
--- NOTE | 2024-05-10 17:56 | CT ---
EXAMINATION TYPE: CT brain cspine wo con CT DLP: 1368.3 mGycm, Automated exposure control for dose reduction was used. DATE OF EXAM: 05/10/2024 5:42 PM COMPARISON: 07/24/2020. CLINICAL INDICATION:Male, 79 years old with history of fall; Fall, No LOC, is on thinners. TECHNIQUE: Brain: Multiple axial CT images of the brain were obtained without IV contrast. Cspine: Axial CT images from the skull base to the inferior aspect of T2 we obtained without intraven ous contrast. Coronal and sagittal reformatted images were also reviewed. . FINDINGS: Brain: Extra-axial spaces: No abnormal extra-axial fluid collections. Ventricular system: Dilatation in proportion to cerebral atrophy. Cerebral parenchyma: Cerebral atrophy. No acute intraparenchymal hemorrhage or mass effect. The maria -white junction is well differentiated. Scattered hypoattenuating areas are seen within the white mat ter. Cerebellum: Unremarkable. Mass effect: No evidence of midline shift. Intracranial vasculature: Atherosclerotic calcifications of the intracranial vessels. Soft tissues: Normal. Calvarium/osseous structures: No depressed skull fracture. Paranasal sinuses and mastoid air cells: Mucosal thickening of the right frontal sinus. Visualized orbits: Bilateral aphakia Cervical spine: Fracture: None. Osseous structures: Multilevel degenerative disc disease changes with endplate spurring and disc oste ophyte complex's. Ankylosis of the vertebral bodies of C3 and C4. Ankylosis of the lateral facets of C3 and C4. Vertebral alignment: Increased lordotic alignment of the spine. Grade 1 anterolisthesis of C7 on T1. Spinal canal/Neural Foramina: No evidence of significant spinal canal narrowing. No evidence for sign ificant neural foraminal stenosis. Neck soft tissues: Prevertebral soft tissues are within normal limits. Other: The airway is patent. The lung apices are clear. IMPRESSION: 1. No acute intracranial process. 2. Nonspecific white matter changes, likely secondary to chronic small vessel ischemic disease. 3. No evidence of cervical spine fracture. 4. Severe multilevel degenerative disc disease.
[2024-05-10 18:23] VITALS: BP 141/86; RESP 16; TEMP 98.5
[2024-05-10] MEDS: TOPICAL SKIN ADHESIVE 1 EACH AMP TOPICAL ONE (18:50)
--- NOTE | 2024-05-10 19:11 | ED ---
General Adult HPI - General Chief complaint: Fall Stated complaint: Fall-on thinners Time Seen by Provider: 05/10/24 16:31 Source: patient, RN notes reviewed, old records reviewed Mode of arrival: wheelchair - History of Present Illness Initial comments: Patient is a 79-year-old male who presents emergency department complaining of a fall. Was walking in for an appointment when he tripped over his own feet and fell forward onto the cement. Patient has a history of lung cancer. Skinned his right knee and struck his forehead on the ground. Did not lose consciousness. Has no acute complaints but presents for further evaluation at this time. Is a small laceration of the right forehead as well as a abrasion to the right knee. No other acute complaints. Patient is on blood thinners. Is not currently undergoing chemo or radiation. Denies chest pain, shortness of breath, fevers, chills, cough, nausea, vomiting, diarrhea. Has a history of A-fib and has been compliant with medications. Currently in mild A-fib with RVR. Presents for further evaluation.Was ambulatory afterwards and brought himself to the ER for evaluation. - Related Data Home Medications Medication Instructions Recorded Confirmed Pentoxifylline [TRENtal] 400 mg PO BID 08/08/15 05/10/24 Rosuvastatin Calcium [Crestor] 20 mg PO HS 08/08/15 05/10/24 Levothyroxine Sodium [Synthroid] 50 mcg PO DAILY 06/08/21 05/10/24 [place]-3 Fatty Acids/Fish Oil [Fish 2 cap PO DAILY 06/08/21 05/10/24 Oil 1,000 mg Softgel] Ubidecarenone [Co Q-10] 200 mg PO DAILY 06/08/21 05/10/24 amLODIPine [Norvasc] 10 mg PO DAILY 06/08/21 05/10/24 Apixaban [Eliquis] 5 mg PO BID 04/02/24 05/10/24 Donepezil [Aricept] 10 mg PO HS 04/02/24 05/10/24 Lifitegrast [Xiidra] 1 drop BOTH EYES BID 04/02/24 05/10/24 Metoprolol Tartrate 25 mg PO TID 04/02/24 05/10/24 Acetaminophen [Tylenol Arthritis] 650 mg PO BID 05/10/24 05/10/24 Amiodarone [Cordarone] 200 mg PO BID 05/10/24 05/10/24 Azelastine HCl [Astelin Nasal 1 spray EA NOSTRIL BID 05/10/24 05/10/24 [place]] Benazepril [Lotensin] 10 mg PO DAILY 05/10/24 05/10/24 Doxazosin Mesylate [Cardura] 8 mg PO DAILY 05/10/24 05/10/24 Febuxostat [Uloric] 40 mg PO DAILY 05/10/24 05/10/24 Glucosam/[place]-Msm1/C/Lance/Bosw 2 tab PO DAILY 05/10/24 05/10/24 [Glucosamine-Chondroitin Tablet] Ipratropium [place] [Ipratropium 1 spray NASAL BID 05/10/24 05/10/24 [place] 0.03%] Meclizine [Antivert] 12.5 mg PO Q8HR PRN 05/10/24 05/10/24 Mv-Min/Folic/K1/Lycopen/Lutein 1 tab PO DAILY 05/10/24 05/10/24 [Centrum Silver Men Tablet] hydrALAZINE HCL [Apresoline] 25 mg PO BID 05/10/24 05/10/24 Allergies Allergy/AdvReac Type Severity Reaction Status Date / Time ibuprofen [From Nuprin] Allergy throat Verified 05/10/24 18:12 swelling simvastatin [From Zocor] Allergy muscle pain Verified 05/10/24 18:12 allopurinol AdvReac Rash/Hives Verified 05/10/24 18:12 Review of Systems ROS Statement: Those systems with pertinent positive or pertinent negative responses have been documented in the HPI. Review of Systems: CONST: Denies fever EYES: Denies blurry vision ENT: Denies nasal congestion C/V: Denies Chest pain RESP: Denies shortness of breath GI: Denies abdominal pain : Denies dysuria SKIN: Endorses abrasions to the right knee, laceration of the right eyebrow. MSK: Denies joint pain. NEURO: Denies headache ROS Other: All systems not noted in ROS Statement are negative. Past Medical History Past Medical History: Coronary Artery Disease (CAD), Chest Pain / Angina, COPD, GERD/Reflux, Hyperlipidemia, Hypertension, Osteoarthritis (OA), Pulmonary Embolus (PE), Skin Disorder Additional Past Medical History / Comment(s): heart murmer, gout, eczema,HEART BLOCK PER PAST HX, EMPHYSEMA, BARRETTS ESOPHAGUS History of Any Multi-Drug Resistant Organisms: None Reported Past Surgical History: Coronary Bypass/CABG, Heart Catheterization With Stent, Hernia Repair, Orthopedic Surgery, Tonsillectomy Additional Past Surgical History / Comment(s): 2 stents to lt iliac,1 stent to rt iliac, rt inguinal hernia repair, egd, triple vessel cabg; stent left renal artery, left shoulder surgery, Past Anesthesia/Blood Transfusion Reactions: No Reported Reaction Date of Last Stent Placement:: 2003 Past Psychological History: No Psychological Hx Reported Smoking Status: Former smoker Past Alcohol Use History: Daily Past Drug Use History: None Reported - Past Family History Mother Family Medical History: Congestive Heart Failure (CHF) Father Family Medical History: Myocardial Infarction (NH) Additional Family Medical History / Comment(s): cabg, at age 67 General Exam - General Exam Comments Initial Comments: General: Appears in no acute distress. HEAD: Small laceration to the right eyebrow laterally that will require skin glue. Negative Christie sign. Negative raccoon eyes. EYES: PERRLA, EOMI, conjunctiva normal, no discharge. Pupils are 3 mm and equal bilaterally. ENT: Hearing grossly intact, normal oropharynx. RESPIRATORY: Clear breath sounds bilaterally. No wheezes, rales, or rhonchi. C/V: Irregular rate and rhythm. S1 and S2 auscultated, no edema, peripheral pulses 2+ and intact throughout ABD: Abd is soft, nontender, nondistended EXT: Normal range of motion, no obvious deformity. No midline cervical, thoracic, lumbar spine tenderness to palpation. Pelvis is stable. Normal range of motion of the right knee where there is an abrasion. SKIN: Abrasion over right knee. Small half centimeter laceration over right eyebrow. NEURO: Alert and oriented x 4. GCS 15. No focal deficits. Course Vital Signs 05/10/24 05/10/24 05/10/24 16:10 17:13 18:22 Temperature 97.7 F 98.5 F Pulse Rate 148 H 128 H 90 Respiratory 18 18 16 Rate Blood Pressure 97/64 141/86 O2 Sat by Pulse 99 100 94 L Oximetry 05/10/24 19:48 Temperature Pulse Rate 68 Respiratory 16 Rate Blood Pressure O2 Sat by Pulse 96 Oximetry Procedures - Laceration Laceration #1 Consent Obtained: verbal consent Indication: laceration Site: face Size (cm): 1 Description: linear Depth: simple, single layer Additional Comments: Closed with Dermabond. Patient declined closure with sutures. Medical Decision Making - Medical Decision Making Was pt. sent in by a medical professional or institution (, PA, MACHINE LEARNING INTERN, urgent care, hospital, or alf...) When possible be specific @ -No Did you speak to anyone other than the patient for history (EMS, parent, family, police, friend...)? What history was obtained from this source @ -No Did you review nursing and triage notes (agree or disagree)? Why? @ -I reviewed and agree with nursing and triage notes Were old charts reviewed (outside hosp., previous admission, EMS record, old EKG, old radiological studies, urgent care reports/EKG's, alf records)? Report findings @ -Old charts reviewed to confirm patient's medications including blood thinner as well as metoprolol. Differential Diagnosis (chest pain, altered mental status, abdominal pain women, abdominal pain men, vaginal bleeding, weakness, fever, dyspnea, syncope, headache, dizziness, GI bleed, back pain, seizure, CVA, palpatations, mental health, musculoskeletal)? @ -Differential Musculoskeletal Muscular strain, contusion, ligament sprain, fracture, arthritis, septic arthritis, bursitis, cellulitis, muscle spasm, nerve compression, DVT, arterial occlusion, herpes zoster, electrolyte abnormality, tumor.... This is not meant to be in all inclusive list EKG interpreted by me (3pts min.). @ -As above X-rays interpreted by me (1pt min.). @ -Chest x-ray, knee x-ray, pelvis x-ray negative for any obvious traumatic injury. Acute cardiopulmonary process. Patient has known malignancy seen in the right lower lobe. CT interpreted by me (1pt min.). @ -CT brain and C-spine negative for any obvious traumatic injury. U/S interpreted by me (1pt. min.). @ -None done What testing was considered but not performed or refused? (CT, X-rays, U/S, labs)? Why? @ -None What meds were considered but not given or refused? Why? @ -None Did you discuss the management of the patient with other professionals (professionals i.e. , PA, MACHINE LEARNING INTERN, lab, RT, psych nurse, hospice social worker, cable weaver, teacher, ship's electronic warfare officer, patient case manager)? Give summary @ -No Was smoking cessation discussed for >3mins.? @ -No Was critical care preformed (if so, how long)? @ -No Were there social determinants of health that impacted care today? How? (Homelessness, low income, unemployed, alcoholism, drug addiction, transportation, low edu. Level, literacy, decrease access to med. care, prison, rehab)? @ -No Was there de-escalation of care discussed even if they declined (Discuss DNR or withdrawal of care, Hospice)? DNR status @ -No What co-morbidities impacted this encounter? (DM, HTN, Smoking, COPD, CAD, Cancer, CVA, ARF, Chemo, Hep., AIDS, mental health diagnosis, sleep apnea, morbid obesity)? @ -Atrial fibrillation Was patient admitted / discharged? Hospital course, mention meds given and route, prescriptions, significant lab abnormalities, going to OR and other pertinent info. @ -Patient presents emergency department after mechanical fall. Has a small laceration to the right eyebrow that will require skin glue. I did offer sutures but patient declined. Patient also has abrasion over the right knee. As patient is on blood thinners despite no LOC, we will obtain CT brain and C- spine in addition to chest, pelvis x-rays and right knee x-ray. Patient in agreement this plan. He is incidentally in A-fib with RVR which could be secondary to the stress of fall. He states he has been compliant with all of his medications including metoprolol. He received a small dose of IV metoprolol we will continue to reevaluate. Patient in agreement this plan. Heart rate on presentation ranges anywhere from 100-150 but is mostly between 100- 120. EKG shows A-fib with RVR but no signs of acute ischemia. Imaging unremarkable. Labs unremarkable. Chronically elevated BUN and creatinine within baseline. Patient was given IV fluids for slight hypokalemia with no EKG changes. Laceration was closed by myself. I updated the patient. On reevaluation, heart rate is within normal limits ranging from 60-90. He is asymptomatic. I did offer admission but he would like to go home. I believe this is reasonable. Patient will be discharged home at this time. I instructed the patient to follow up with their PCP in the next 1-3 days. I explained that the patient should return to the emergency department if they experience any worsening symptoms. Strict return precautions were discussed with the patient. The patient expressed understanding of these instructions. I answered all questions that the patient had. The patient was discharged home in good condition with their prescriptions and follow up information. Undiagnosed new problem with uncertain prognosis? @ -No Drug Therapy requiring intensive monitoring for toxicity (Heparin, Nitro, In sulin, Cardizem)? @ -No Were any procedures done? @ -No Diagnosis/symptom? @ -A-fib with RVR, fall, laceration, abrasion Acute, or Chronic, or Acute on Chronic? @ -Acute Uncomplicated (without systemic symptoms) or Complicated (systemic symptoms)? @ -Uncomplicated Side effects of treatment? @ -No Exacerbation, Progression, or Severe Exacerbation? @ -No Poses a threat to life or bodily function? How? (Chest pain, [place], NH, pneumonia, PE, COPD, DKA, ARF, appy, cholecystitis, CVA, Diverticulitis, Homicidal, Suicidal, threat to staff... and all critical care pts) @ -Unlikely - Lab Data Result diagrams: 05/10/24 17:00 05/10/24 17:00 Lab Results 05/10/24 05/10/24 05/10/24 Range/Units 17:00 17:00 17:00 WBC 9.7 (3.8-10.6) k/uL RBC 3.78 L (4.30-5.90) m/uL Hgb 10.7 L (13.0-17.5) gm/dL Hct 34.7 L (39.0-53.0) % MCV 91.8 (80.0-100.0) fL MCH 28.2 (25.0-35.0) pg MCHC 30.7 L (31.0-37.0) g/dL RDW 16.3 H (11.5-15.5) % Plt Count 404 (150-450) k/uL MPV 7.8 Neutrophils % 89 % Lymphocytes % 6 % Monocytes % 4 % Eosinophils % 1 % Basophils % 0 % Neutrophils # 8.7 H (1.3-7.7) k/uL Lymphocytes # 0.5 L (1.0-4.8) k/uL Monocytes # 0.4 (0-1.0) k/uL Eosinophils # 0.1 (0-0.7) k/uL Basophils # 0.0 (0-0.2) k/uL Hypochromasia Marked Anisocytosis Slight PT 11.6 (10.0-12.5) sec INR 1.1 (<1.2) APTT 24.2 (22.0-30.0) sec Sodium 135 L (137-145) mmol/L Potassium 5.2 H (3.5-5.1) mmol/L Chloride 101 (98-107) mmol/L Carbon Dioxide 30 (22-30) mmol/L Anion Gap 4 mmol/L BUN 25 H (9-20) mg/dL Creatinine 1.65 H (0.66-1.25) mg/dL Est GFR (CKD-EPI)AfAm 45 (>60 ml/min/1.73 sqM) Est GFR (CKD-EPI)NonAf 39 (>60 ml/min/1.73 sqM) Glucose 157 H (74-99) mg/dL Calcium 9.5 (8.4-10.2) mg/dL Magnesium 2.3 (1.6-2.3) mg/dL Total Bilirubin 1.0 (0.2-1.3) mg/dL AST 55 (17-59) U/L ALT 39 (4-49) U/L Alkaline Phosphatase 255 H (38-126) U/L Troponin I (0.000-0.034) ng/mL Total Protein 5.8 L (6.3-8.2) g/dL Albumin 3.2 L (3.5-5.0) g/dL Lipase 29 (23-300) U/L Influenza Type A (PCR) (Not Detectd) Influenza Type B (PCR) (Not Detectd) RSV (PCR) (Not Detectd) SARS-CoV-2 (PCR) (Not Detectd) 05/10/24 05/10/24 Range/Units 17:00 17:00 WBC (3.8-10.6) k/uL RBC (4.30-5.90) m/uL Hgb (13.0-17.5) gm/dL Hct (39.0-53.0) % MCV (80.0-100.0) fL MCH (25.0-35.0) pg MCHC (31.0-37.0) g/dL RDW (11.5-15.5) % Plt Count (150-450) k/uL MPV Neutrophils % % Lymphocytes % % Monocytes % % Eosinophils % % Basophils % % Neutrophils # (1.3-7.7) k/uL Lymphocytes # (1.0-4.8) k/uL Monocytes # (0-1.0) k/uL Eosinophils # (0-0.7) k/uL Basophils # (0-0.2) k/uL Hypochromasia Anisocytosis PT (10.0-12.5) sec INR (<1.2) APTT (22.0-30.0) sec Sodium (137-145) mmol/L Potassium (3.5-5.1) mmol/L Chloride (98-107) mmol/L Carbon Dioxide (22-30) mmol/L Anion Gap mmol/L BUN (9-20) mg/dL Creatinine (0.66-1.25) mg/dL Est GFR (CKD-EPI)AfAm (>60 ml/min/1.73 sqM) Est GFR (CKD-EPI)NonAf (>60 ml/min/1.73 sqM) Glucose (74-99) mg/dL Calcium (8.4-10.2) mg/dL Magnesium (1.6-2.3) mg/dL Total Bilirubin (0.2-1.3) mg/dL AST (17-59) U/L ALT (4-49) U/L Alkaline Phosphatase (38-126) U/L Troponin I 0.019 (0.000-0.034) ng/mL Total Protein (6.3-8.2) g/dL Albumin (3.5-5.0) g/dL Lipase (23-300) U/L Influenza Type A (PCR) Not Detected (Not Detectd) Influenza Type B (PCR) Not Detected (Not Detectd) RSV (PCR) Not Detected (Not Detectd) SARS-CoV-2 (PCR) Not Detected (Not Detectd) - EKG Data -: EKG Interpreted by Tx EKG Comments: 12-lead Electrocardiogram Interpretation Note EKG was reviewed and interpreted by myself. 12-lead ECG performed at 1626 is interpreted by me as revealing A-fib with RVR at a rate of 120 beats per minute. [place] is rightward deviated. QRS is 97 ms, QTc is 404 ms. There were no ST or T wave abnormalities to suggest myocardial ischemia or injury. R wave progression across the precordium was satisfactory. By my interpretation this EKG is non-diagnostic for acute ischemia. Disposition Clinical Impression: Fall, Atrial fibrillation, Laceration, Abrasion Disposition: HOME SELF-CARE Condition: Good Instructions (If sedation given, give patient instructions): Fall Prevention for Older Adults (ED), Abrasion (ED), Skin Adhesive Care (ED) Is patient prescribed a controlled substance at d/c from ED?: No Referrals: Fuentes Matta MD [Primary Care Provider] - 1-2 days Time of Disposition: 19:11
[2024-05-10 19:51] VITALS: PULSE 68
== END 2024-05-10 19:48 | disposition home or self-care (01) ==
LOC: EC 16:00
DX: S01.81XA Laceration without foreign body of other part of head, initial encounter (principal); S80.211A Abrasion, right knee, initial encounter; I48.91 Unspecified atrial fibrillation; Z87.891 Personal history of nicotine dependence; Z88.6 Allergy status to analgesic agent; Z88.8 Allergy status to other drugs, medicaments and biological substances; Z23 Encounter for immunization; W01.198A Fall on same level from slipping, tripping and stumbling with subsequent striking against other object, initial encounter; Y93.01 Activity, walking, marching and hiking
CPT/HCPCS: 12011; 36415; 70450; 71046; 72125; 72170; 80053; 83690; 83735; 84484; 85025; 85610; 85730; 87636; 90471; 90715; 93005; 96361; 96374; 99285